=== PATIENT | female | born 1965 | race Caucasian/White ===

== ENCOUNTER 2020-01-18 15:04 | Outpatient (CLI) | payer BC, SELFPAY ==
--- NOTE | ~2020-01-18 | MM_ITS ---
EXAMINATION: MM screening [facility] BI w carmenza HISTORY: Screening mammogram TECHNIQUE: Craniocaudal and mediolateral oblique 3-D tomosynthesis images were obtained and synthetic 2-D images were generated. CAD analysis was submitted and interpreted. COMPARISON: 01/10/2019, 01/08/2018, 12/14/2016 BREAST PARENCHYMAL COMPOSITION: The breasts are almost entirely fatty. FINDINGS: There is no evidence of suspicious mass, calcification, or architectural distortion to sugg est malignancy in either breast. There has been no suspicious interval change. IMPRESSION: 1. No mammographic evidence of malignancy. 2. Recommend routine screening mammography in one year. BI-RADS Category 1: Negative Reviewed, dictated and finalized at location A.
== END 2020-01-18 15:05 | disposition home or self-care (01) ==
LOC: ANHIMG 15:06
PROVIDERS: PCP Family Medicine; Visit Provider Obstetrics & Gynecology
DX: Z12.31 Encounter for screening mammogram for malignant neoplasm of breast (principal)
CPT/HCPCS: 77063; 77067

== ENCOUNTER 2021-04-01 15:56 | Outpatient (CLI) | payer BC, OTHER, SELFPAY ==
--- NOTE | ~2021-04-01 | MM_ITS ---
EXAMINATION: MM screening [facility] BI w carmenza HISTORY: Screening mammogram TECHNIQUE: Craniocaudal and mediolateral oblique 3-D tomosynthesis images were obtained and synthetic 2-D images were generated. CAD analysis was submitted and interpreted. COMPARISON: 01/18/2020, 01/10/2019, 01/08/2018 BREAST PARENCHYMAL COMPOSITION: The breasts are almost entirely fatty. FINDINGS: There is no evidence of suspicious mass, calcification, or architectural distortion to sugg est malignancy in either breast. There has been no suspicious interval change. IMPRESSION: 1. No mammographic evidence of malignancy. 2. Recommend routine screening mammography in one year. BI-RADS Category 1: Negative Reviewed, dictated and finalized at location A.
== END 2021-04-01 15:57 | disposition home or self-care (01) ==
LOC: ANHIMG 15:58
PROVIDERS: PCP Family Medicine; Visit Provider Obstetrics & Gynecology
DX: Z12.31 Encounter for screening mammogram for malignant neoplasm of breast (principal)
CPT/HCPCS: 77063; 77067

== ENCOUNTER 2022-04-30 07:36 | Outpatient (CLI) | payer BC, SELFPAY ==
--- NOTE | ~2022-04-30 | MM_ITS ---
EXAMINATION: MM screening [facility] BI w carmenza HISTORY: Screening TECHNIQUE: Craniocaudal and mediolateral oblique 3-D tomosynthesis images were obtained and synthetic 2-D images were generated. CAD analysis was submitted and interpreted. COMPARISON: Comparison to multiple prior studies sequentially, with oldest reviewed study dated 10/2015. BREAST PARENCHYMAL COMPOSITION: Breast composed of scattered areas of fibroglandular density FINDINGS: There is no evidence of suspicious mass, calcification, or architectural distortion to sugg est malignancy in either breast. There has been no suspicious interval change. IMPRESSION: 1. No mammographic evidence of malignancy. 2. Recommend routine screening mammography in one year. BI-RADS Category 1: Negative Reviewed, dictated and finalized at location A.
== END 2022-04-30 07:37 | disposition home or self-care (01) ==
LOC: ANHIMG 07:44
PROVIDERS: PCP Family Medicine; Visit Provider Obstetrics & Gynecology
DX: Z12.31 Encounter for screening mammogram for malignant neoplasm of breast (principal)
CPT/HCPCS: 77063; 77067

== ENCOUNTER 2023-05-05 07:41 | Outpatient (CLI) | payer BC, SELFPAY ==
--- NOTE | ~2023-05-05 | MM_ITS ---
EXAMINATION: MM screening [facility] BI w carmenza HISTORY: Screening mammogram TECHNIQUE: Craniocaudal and mediolateral oblique 3-D tomosynthesis images were obtained and synthetic 2-D images were generated. CAD analysis was submitted and interpreted. COMPARISON: 04/30/2022, 04/01/2021, 01/18/2020 BREAST PARENCHYMAL COMPOSITION: The breasts are almost entirely fatty. FINDINGS: No suspicious mass, calcification, or architectural distortion are identified in either eris ast to suggest malignancy. There has been no suspicious interval change. IMPRESSION: 1. No mammographic evidence of malignancy. 2. Recommend routine screening mammography in one year. BI-RADS Category 1: Negative Reviewed, dictated and finalized at location A.
== END 2023-05-05 07:42 | disposition home or self-care (01) ==
LOC: ANHIMG 07:45
PROVIDERS: PCP Family Medicine; Visit Provider Obstetrics & Gynecology
DX: Z12.31 Encounter for screening mammogram for malignant neoplasm of breast (principal)
CPT/HCPCS: 77063; 77067

== ENCOUNTER 2023-07-06 00:33 | Day surgery (SDC) | payer BC, SELFPAY ==
[2023-06-24 11:25] VITALS: BMI 42.0
[2023-07-06 06:20] VITALS: BP 157/98; PULSE 66; RESP 18; TEMP 36.2; O2SAT 98
[2023-07-06] MEDS: LACTATED RINGERS 1,000 ML 150 ML IV CONT (06:30)
--- NOTE | 2023-07-06 07:09 | WPDANESEPPF ---
Anes - Initial Pre Proc Eval Procedure: Operation Date: 07/06/23 07:30 Proposed Procedures p Colonoscopy - Erik Arriaza MD Date/Time: 07/06/23 07:09 Surgeon: Erik Arriaza MD Pre Op Diagnosis: hx colon polyps Patient Data Age: 57 Gender: F Height: 1.68 m Weight: 118.9 kg Last Vital Signs Temp 97.1 F L 07/06/23 06:20 Pulse 66 07/06/23 06:20 Resp 18 07/06/23 06:20 BP 157/98 H 07/06/23 06:20 Pulse Ox 98 07/06/23 06:20 O2 Del Method Room Air 07/06/23 06:20 Allergies Allergy/AdvReac Type Severity Reaction Status Date / Time Penicillins Allergy Unknown Unknown Verified 07/06/23 06:18 Home Medications Medication Instructions Recorded Confirmed Type eiwjcxlzuqyg-xlafpmcq-ptlod acid 1 cap PO DAILY 04/15/20 06/24/23 History 400 mcg-vitamin K 80 mcg capsule cp-6-pnq-epa-fish oil-vit D3 300 1 cap PO DAILY 04/15/20 06/24/23 History mg-1,000 mg-1,000 unit capsule (Fish Oil-Vit D3) omeprazole 20 mg capsule,delayed 20 mg PO DAILY #90 caps 03/02/23 06/24/23 Rx release Patient hx anesthesia problems: none Family hx anesthesia problems: none Results Review: All pre-operative results and documents have been reviewed as part of the pre-operative evaluation. [facility] Past Medical History Medical History (Updated 12/28/22 @ 10:07 by Karen Mahoney PA-C) Dyslipidemia Dysphagia Essential (primary) hypertension Family history of colon cancer History of vaginal delivery 1993 and 2000 Murmur Surgical History Surgical History Hx of tonsillectomy 1982 Family History Family History Other Colon cancer Diabetes mellitus Hypertension Social History Social History Smoking status: Never smoker Second hand tobacco smoke exposure: No Alcohol intake: never Substance use: never Substance use type: does not use Living arrangements: other Additional living arrangements comments: with sp Gender identity (if verbalized by the patient): Female Anes - Eval Final PreProcedure Day of Procedure 07/06/23 07:09 Patient weight: morbidly obese Heart: regular rate and rhythm Lungs: clear to auscultation Airway: Mallampati scale class II Neurological: alert and oriented Last oral intake: >/= 8 hours ASA classification: III Emergent: no Anesthetic plan: proceed Anesthesia type and monitoring: general GIVS and standard monitoring Results Review: All pre-operative results and documents have been reviewed as part of the pre-operative evaluation. Informed Consent: The patient's anesthetic plan and its attendant risks and benefits were discussed with the patient/family/POA. Questions were solicited and answers provided to the satisfaction of the patient/family/POA.
--- NOTE | 2023-07-06 07:13 | PM.HPGS ---
History of Present Illness History of Present Illness Consent: Risks, benefits, and alternatives have been discussed and questions answered. Patient agrees to proceed with procedure. Chief complaint: hx colon polyps Narrative: Bharti Decker is a 57 year old female Presents for screening colonoscopy. Patient's current weight appetite and bowel movements are normal. Patient denies abdominal pain. She has had bleeding. Family history Is significant that her mother has had colon polyps. Patient's most recent colonoscopy 2017 was unremarkable. In 2012 she had an adenomatous colon polyp removed from the colon. Review of Systems Review of Systems: Review of systems noncontributory. [facility] Past Medical History Medical History (Updated 07/06/23 @ 07:16 by Erik Arriaza MD) Dyslipidemia Dysphagia Essential (primary) hypertension Family history of colon cancer History of vaginal delivery 1993 and 2000 Murmur Surgical History Surgical History Hx of tonsillectomy 1982 Family History Family History Other Colon cancer Diabetes mellitus Hypertension Social History Social History Smoking status: Never smoker Second hand tobacco smoke exposure: No Alcohol intake: never Substance use: never Substance use type: does not use Living arrangements: other Additional living arrangements comments: with sp Gender identity (if verbalized by the patient): Female Meds Home Medications and Allergies Home Medications Medication Instructions Recorded Confirmed Type uiiefphzimhv-myynoeiu-esxtt acid 1 cap PO DAILY 04/15/20 06/24/23 History 400 mcg-vitamin K 80 mcg capsule uy-7-wzw-epa-fish oil-vit D3 300 1 cap PO DAILY 04/15/20 06/24/23 History mg-1,000 mg-1,000 unit capsule (Fish Oil-Vit D3) omeprazole 20 mg capsule,delayed 20 mg PO DAILY #90 caps 03/02/23 06/24/23 Rx release Allergies Allergy/AdvReac Type Severity Reaction Status Date / Time Penicillins Allergy Unknown Unknown Verified 07/06/23 06:18 Vital Signs Vital Signs - 24 hr 07/06/23 06:20 Temperature 97.1 F L Pulse Rate 66 Respiratory Rate 18 Blood Pressure 157/98 H Pulse Oximetry 98 Oxygen Delivery Room Air Exam Narrative: Physical exam reveals patient to be alert. Vital signs stable. HEENT exam is unremarkable. Patient is anicteric. Lungs are clear to auscultation and percussion. Heart is without murmur or extra sounds. Abdomen bowel sounds are present soft nontender with no organomegaly. Digital external rectal exam normal. Assessment and Plan Assessment and plan (1) History of colon polyps: Code(s): Z86.010 - Personal history of colonic polyps Status: Acute Assessment and Plan: Patient has a history of colon polyps removed colon 10 years ago. Plan for surveillance colonoscopy at this time. Further recommendations may be given after endoscopy. (2) Family history of colonic polyps: Code(s): Z83.719 - Family history of colon polyps, unspecified Status: Acute Assessment and Plan: Patient's mother has had colon polyps. For this reason surveillance colonoscopy advised at 5 year intervals.
[2023-07-06 07:54] VITALS: BP 114/80; PULSE 67; RESP 16; O2SAT 100
[2023-07-06 08:04] VITALS: BP 131/59; PULSE 65; RESP 22; O2SAT 98
[2023-07-06 08:14] VITALS: BP 145/73; PULSE 60; RESP 18; O2SAT 99
== END 2023-07-06 08:22 | disposition home or self-care (01) ==
PROVIDERS: PCP Physician Assistant Medical; Visit Provider Internal Medicine Gastroenterology
PROC: 0DJD8ZZ Inspection of Lower Intestinal Tract, Via Natural or Artificial Opening Endoscopic (ICD-10-PCS; CPT 45378; principal; 2023-07-06 07:30)
DX: Z12.11 Encounter for screening for malignant neoplasm of colon (principal); D12.2 Benign neoplasm of ascending colon; D12.5 Benign neoplasm of sigmoid colon; E78.5 Hyperlipidemia, unspecified; R13.10 Dysphagia, unspecified; I10 Essential (primary) hypertension; Z86.010 Personal history of colon polyps; Z83.719 Family history of colon polyps, unspecified; E66.01 Morbid (severe) obesity due to excess calories; Z68.41 Body mass index [BMI] 40.0-44.9, adult
CPT/HCPCS: 45385; 88305; J2704; J7120

== ENCOUNTER 2024-05-16 09:36 | Outpatient (CLI) | payer BC, SELFPAY ==
--- NOTE | 2024-05-16 09:38 | ECHO_ITS ---
Patient Info Name: Bharti Decker Age: 58 years : 1965 Gender: Female Ht: 66 in Wt: 260 lbs BSA: 2.40 m2 HR: 61 bpm BP: 172 / 88 mmHg Technical Quality: Good Exam Date: 05/16/2024 10:16 AM Exam Location: Echo Lab Patient Status: Outpatient Admit Date: 05/16/2024 Staff Ordering Physician: Karen Mahoney PA-C Finger Waver: Tory Vásquez RDCS Attending Provider: Karen Mahoney PA-C Referring Physician: Denzel RICHMOND; Exam Type: CA echo doppler color flow Study Info Indications R01.1 - Cardiac murmur, unspecified Complete two-dimensional, color flow and Doppler transthoracic echocardiogram is performed. Summary 1. Complete two-dimensional, color flow and Doppler transthoracic echocardiogram is performed. 2. Left ventricular chamber dimension is normal. 3. Left ventricular systolic function is normal, estimated at 60-65%. 4. There is mild concentric increased left ventricular wall thickness. 5. The left ventricular diastolic function is grade I diastolic dysfunction. 6. E/e' 12 is mildly elevated. 7. Global longitudinal strain is normal at -19.2%. 8. Left atrial chamber dimension is mildly enlarged. 9. There is trace mitral valve regurgitation. 10. There is trace tricuspid valve regurgitation. 11. No pulmonary hypertension, estimated pulmonary arterial systolic pressure is 25 mmHg. 12. There is trivial pericardial effusion. Left Ventricle E/e' 12 is mildly elevated. Global longitudinal strain is normal at -19.2%. Left ventricular chamber dimension is normal. Left ventricular systolic function is normal, estimated at 60-65%. There is mild concentric increased left ventricular wall thickness. The left ventricular diastolic function is grade I diastolic dysfunction. Right Ventricle Right ventricular chamber dimension is normal. Right ventricular systolic function is normal. Left Atria Left atrial chamber dimension is mildly enlarged. Right Atria Right atrial chamber dimension is normal. Aortic Valve The aortic valve is trileaflet. There is no aortic valve stenosis. There is no aortic valve regurgitation. Pulmonic Valve There is no pulmonic regurgitation. Mitral Valve There is no mitral valve stenosis. There is trace mitral valve regurgitation. Tricuspid Valve There is trace tricuspid valve regurgitation. No pulmonary hypertension, estimated pulmonary arterial systolic pressure is 25 mmHg. Pericardium/Pleural There is trivial pericardial effusion. Inferior Vena Cava Normal inferior vena cava with >50% collapse upon inspiration consistent with normal right atrial pressure, 5 mmHg. Aorta The aortic root size at the sinus of Valsalva is normal. Left Ventricular Outflow Tract Name Value Normal LVOT 2D LVOT Diameter 2.2 cm LVOT Doppler LVOT Peak Gradient 7 mmHg LVOT Mean Gradient 4 mmHg LVOT VTI 31 cm LVOT VTI/AV VTI Ratio 1.1 LVOT Stroke Volume 122 ml LVOT CO 8.0 l/min LVOT CI 3.3 l/min/m2 Pulmonic Valve
== END 2024-05-16 09:37 | disposition home or self-care (01) ==
LOC: ANHCARD 09:37
PROVIDERS: PCP Physician Assistant Medical; Visit Provider Physician Assistant Medical
DX: R01.1 Cardiac murmur, unspecified (principal)
CPT/HCPCS: 93306

== ENCOUNTER 2024-07-05 08:38 | Outpatient (CLI) | payer BC, SELFPAY ==
--- NOTE | ~2024-07-05 | MM_ITS ---
EXAMINATION: MM screening [facility] BI w carmenza HISTORY: Screening TECHNIQUE: Craniocaudal and mediolateral oblique 3-D tomosynthesis images were obtained and synthetic 2-D images were generated. CAD analysis was submitted and interpreted. COMPARISON: Comparison to multiple prior studies sequentially, with oldest reviewed study dated 01/08. BREAST PARENCHYMAL COMPOSITION: Not Dense. The breasts are almost entirely fatty. FINDINGS: There is no evidence of suspicious mass, calcification, or architectural distortion to sugg est malignancy in either breast. There has been no suspicious interval change. IMPRESSION: 1. No mammographic evidence of malignancy. 2. Recommend routine screening mammography in one year. BI-RADS Category 1: Negative Reviewed, dictated and finalized at location B.
== END 2024-07-05 08:39 | disposition home or self-care (01) ==
PROVIDERS: PCP Physician Assistant Medical; Visit Provider Obstetrics & Gynecology
DX: Z12.31 Encounter for screening mammogram for malignant neoplasm of breast (principal)
CPT/HCPCS: 77063; 77067

== ENCOUNTER 2025-08-07 15:28 | Outpatient (CLI) | payer BC, SELFPAY ==
--- NOTE | ~2025-08-07 | MM_ITS ---
EXAMINATION: MM screening [facility] BI w carmenza HISTORY: Screening TECHNIQUE: Craniocaudal and mediolateral oblique 3-D tomosynthesis images were obtained and synthetic 2-D images were generated. CAD analysis was submitted and interpreted. COMPARISON: Comparison to multiple prior studies sequentially, with oldest reviewed study dated 01/10/2019. BREAST PARENCHYMAL COMPOSITION: Not Dense: The breasts are almost entirely fatty. FINDINGS: There is a new 5 mm mass in the upper outer quadrant of the right breast, middle third. The left breast is stable without evidence for malignancy. There are no suspicious calcifications or architectural distortion. IMPRESSION: 1. New right breast mass upper outer quadrant, middle third. 2. Additional mammographic views and possible breast ultrasound are recommended. BI-RADS Category 0: Incomplete: Needs additional imaging evaluation. Reviewed, dictated and finalized at location B. [employer]EL[employer] IMPRESSION: 1. New right breast mass upper outer quadrant, middle third. 2. Additional mammographic views and possible breast ultrasound are recommended . BI-RADS Category 0: Incomplete: Needs additional imaging evaluation.
== END 2025-08-07 15:29 | disposition home or self-care (01) ==
LOC: ANHFOHIMG 15:29
PROVIDERS: PCP Physician Assistant Medical; Visit Provider Obstetrics & Gynecology
DX: Z12.31 Encounter for screening mammogram for malignant neoplasm of breast (principal); R92.8 Other abnormal and inconclusive findings on diagnostic imaging of breast
CPT/HCPCS: 77063; 77067

== ENCOUNTER 2025-08-20 08:41 | Outpatient (CLI) | payer BC, SELFPAY ==
--- NOTE | ~2025-08-20 | MMUS_ITS ---
EXAMINATION: MM diagnostic [facility] RT w carmenza, US breast RT limited HISTORY: Follow-up right breast mass TECHNIQUE: Additional 3-D tomosynthesis images of the right breast were performed and synthetic 2-D images were generated. CAD analysis was submitted and interpreted. High resolution Limited right breast ultrasound was performed. COMPARISON: Comparison to multiple prior studies sequentially, with oldest reviewed study dated 01/18/2020. BREAST PARENCHYMAL COMPOSITION: Not dense: There are scattered areas of fibroglandular density. FINDINGS: MAMMOGRAPHIC FINDINGS: There is a small mass in the upper outer quadrant of the right breast, middle depth. There are no suspicious calcifications or architectural distortion. ULTRASOUND: Limited right breast ultrasound: At 12:00, 5 cm from the nipple there is an oval hyperechoic 7 mm mass which is wider than tall, no posterior features and no internal vascularity, likely benign. In the area of mammographic concern no discrete mass identified. IMPRESSION: 1. Probable benign hyperechoic 7 mm right breast mass at 12:00, 5 cm from the nipple. 2. Recommend 6 month follow-up diagnostic right mammogram and Limited right breast ultrasound. BI-RADS category 3, probably benign findings. Reviewed, dictated and finalized at location O. STRIPPER IMPRESSION: 1. Probable benign hyperechoic 7 mm right breast mass at 12:00, 5 cm from the n ipple. 2. Recommend 6 month follow-up diagnostic right mammogram and Limited right eris ast ultrasound. BI-RADS category 3, probably benign findings.
== END 2025-08-20 08:42 | disposition home or self-care (01) ==
LOC: CHSIMG 08:43
PROVIDERS: PCP Physician Assistant Medical; Visit Provider Obstetrics & Gynecology
DX: R92.8 Other abnormal and inconclusive findings on diagnostic imaging of breast (principal)
CPT/HCPCS: 76642; 77061; 77065; G0279